=== PATIENT | female | born 1960 | race Two or more races ===

== ENCOUNTER → 2016-06-11 | Outpatient (CLI) | payer OTHER ==
[~2016-06-11] MED LIST: ACETAMINOPHEN PO; AMLODIPINE BESY10 MG PO; BAYER ASPIRIN325 M1 PO; GABAPENTIN600 MG PO; HUMALOG100 U/ML; HYDROCHLOROTHIA25 MG PO; IMDUR-ER30 M1 PO; LANTUS100 UNITS/; LIPITOR40 MG PO; LISINOPRIL10 MG PO; METHIMAZOLE10 MG PO; METOPROLOL TART25 MG PO; NORTRIPTYLINE H50 MG PO; PRAVACHOL20 MG PO; SERTRALINE HCL50 MG PO
--- NOTE | ~2016-06-11 | CR282 ---
[facility] A Service of [facility] & [facility] RADIOLOGY TEXT RESULTS PATIENT: ALDAIR CHRISTIANSON LOCATION: [facility] : 58 UNIT #: [id number] AGE: [address]: LORETO Fish APRN SEX: F ORDER DR: [id number] [facility] [address] [place], [place] [address] [id number] O MR#: [id number] Acc #: [id number] NAME: ALDAIR CHRISTIANSON : 1960 SEX: F STUDY DATE/TIME: 06/11/2016 10:19 UNIT: [facility] ROOM: STUDY DESCRIPTION: CR Wrist Min 3 View Rt Attending Physician: Loreto Albarado Aprn Referring Physician: Loreto Albarado Aprn Ordering Physician: Loreto Albarado Aprn [facility] Care [facility] REPORT This report is preliminary unless electronic signature is present EXAM Right wrist 3 views, 06/11/2016 10:19 a.m. COMPARISON None HISTORY Order states pain in right wrist. History sheet states no trauma. Bilateral wrist pain for 2 months. FINDINGS Radiocarpal alignment is normal. There is no fracture versus unfused ossicle of the ulnar styloid. No fracture, osseous lesion, or definite arthritic process is identified. IMPRESSION No acute or arthropathic findings identified. Dictated by... Kaycee Pierre M.D. THIS IS AN ELECTRONICALLY VERIFIED REPORT Kaycee Pierre M.D. at 06/12/2016 9:09 AM HARMAN/lalo TD: 06/11/2016 16:06 JOB #: [id number] MEDICAL IMAGING REPORT Page 1 of 1 COPY
--- NOTE | ~2016-06-11 | CR281 ---
[facility] A Service of [facility] & [facility] RADIOLOGY TEXT RESULTS PATIENT: ALDAIR CHRISTIANSON LOCATION: [facility] : 58 UNIT #: [id number] AGE: [address]: LORETO Fish APRN SEX: F ORDER DR: [id number] [facility] [address] [place], [place] [address] [id number] O MR#: [id number] Acc #: [id number] NAME: ALDAIR CHRISTIANSON : 1960 SEX: F STUDY DATE/TIME: 06/11/2016 10:19 UNIT: [facility] ROOM: STUDY DESCRIPTION: CR Wrist Min 3 View Lt Attending Physician: Loreto Albarado Aprn Referring Physician: Loreto Albarado Aprn Ordering Physician: Loreto Albarado Aprn Primary Care Phys[facility] REPORT This report is preliminary unless electronic signature is present EXAM Left wrist, 3 views. DATE OF EXAM 06/11/2016, 10:19 a.m. HISTORY Order states pain in wrist. History sheet states bilateral wrist pain for 2 months. No trauma. FINDINGS Radiocarpal alignment is normal. No fracture, osseous lesion, or arthritic finding is noted. IMPRESSION 1. Negative left wrist. Dictated by... Kaycee Pierre M.D. THIS IS AN ELECTRONICALLY VERIFIED REPORT Kaycee Pierre M.D. at 06/12/2016 9:09 AM HARMAN/damian TD: 06/11/2016 15:59 JOB #: [id number] MEDICAL IMAGING REPORT Page 1 of 1 COPY
== END | disposition home or self-care (01) ==
LOC: CRAD 10:00
DX: M25.531 Pain in right wrist (principal); M25.532 Pain in left wrist
CPT/HCPCS: 73110

== ENCOUNTER → 2016-06-21 | Outpatient (CLI) | payer OTHER ==
--- NOTE | ~2016-06-21 | CT57 ---
[facility] A Service of [facility] RADIOLOGY TEXT RESULTS PATIENT: KEERTHI CHRISTIANSON LOCATION: [facility] : 58 UNIT #: [id number] AGE: [address]: Radha Wallace SEX: F ORDER DR: [id number] [place] [id number] [facility]. [place], [place] [address] [id number] O MR#: [id number] Acc #: [id number] NAME: KEERTHI CHRISTIANSON : 1960 SEX: F STUDY DATE/TIME: 06/21/2016 9:39 UNIT: [facility] ROOM: STUDY DESCRIPTION: CT Chest Wo Cont Attending Physician: Radha Wallace A.P.R.N. Referring Physician: Radha Wallace A.P.R.N. Ordering Physician: Radha Wallace A.P.R.N. [facility] REPORT This report is preliminary unless electronic signature is present EXAM CT chest without contrast. INDICATIONS Progressive shortness of air over the past several months. PROCEDURE Unenhanced CT of the chest. COMPARISON None. TECHNIQUE This CT exam was performed with one or more of the following radiation dose reduction techniques: automatic exposure control, adjustment of mA and/or kV according to patient size, and iterative reconstruction. FINDINGS There is no dense consolidation. No suspicious pulmonary nodule, pleural fluid or pneumothorax. No adenopathy. Asymmetric density in the left breast, with postsurgical change. There is a 9 mm nodule in the far upper right breast. No acute findings in the included upper abdomen. No aggressive appearing bone lesion. IMPRESSION 1. No acute findings in the chest. 2. Asymmetric density in the inferior left breast with postsurgical change. This may represent a postoperative seroma. Correlate with patient's history. 3. There is a 9 mm nodule in the far upper right breast. Correlate with mammography. [facility] A Service [facility] RADIOLOGY TEXT RESULTS PATIENT: KEERTHI CHRISTIANSON LOCATION: [facility] : 58 UNIT #: [id number] AGE: [address]: Radha Wallace SEX: F ORDER DR: Dictated by... Gary Dougherty M.D. THIS IS AN ELECTRONICALLY VERIFIED REPORT Gary Dougherty M.D. at 06/24/2016 7:45 AM SAMANTHA/damian TD: 06/21/2016 16:34 JOB #: [id number] MEDICAL IMAGING REPORT Page 1 of 1 COPY
== END | disposition home or self-care (01) ==
LOC: CCAT 09:11
DX: R06.02 Shortness of breath (principal); R93.8 Abnormal findings on diagnostic imaging of other specified body structures; N63 Unspecified lump in breast; J98.4 Other disorders of lung; Z98.890 Other specified postprocedural states
CPT/HCPCS: 71250